=== PATIENT | female | born 1965 | race Caucasian/White ===

== ENCOUNTER 2019-07-30 16:37 | Inpatient (IN) ==
[2019-07-30] MEDS ORDERED: NS 1,000 ML IV ONE ×2 (17:20→19:40)
--- NOTE | 2019-07-30 17:31 | PROVIDER DOCUMENTATION ---
HPI-Fever - General Chief Complaint: SEPSIS ALERT - D Stated Complaint: VOMITING DIARRHEA CANT PEE Time Seen by Provider: 07/30/19 17:20 Source: patient Allergies/Adverse Reactions: Patient Allergies Allergy/AdvReac Type Severity Reaction Status Date / Time ampicillin [Ampicillin] Allergy HIVES Verified 07/30/19 17:32 Sulfa (Sulfonamide Allergy ITCHING Verified 07/30/19 17:32 Antibiotics) [Sulfa(Sulfonamide Antibiotics)] Home Medications: Home Medication List Medication Instructions Recorded Confirmed Last Taken Type LISINOpril [Prinivil] 20 mg PO DAILY 02/28/18 07/30/19 08/18/18 History Doxepin HCl 50 mg PO HS 03/15/18 07/30/19 01/25/19 History Albuterol Sulfate 1 inh INH PRN PRN 03/16/18 07/30/19 08/18/18 History Budesonide 1 inh INH BID PRN PRN 03/16/18 07/30/19 08/18/18 History Buprenorphine/Naloxone S.l. 1 ea SL BID #60 film 03/17/18 07/30/19 01/26/19 Rx [Suboxone 8 mg/2 mg Film] Montelukast [Singulair] 1 tab PO DAILY 01/26/19 07/30/19 01/26/19 History Pantoprazole [Protonix] 1 tab PO DAILY 01/26/19 07/30/19 01/26/19 History Venlafaxine E.r. [Effexor Xr] 1 tab PO DAILY 01/26/19 07/30/19 01/26/19 History - History of Present Illness-Fever Nature of Presenting Problem: 54 yof presents with c/o n/v, diarrhea in ostomy bag and inability to urinate. She denies fever, chills, SOB, CP. Fever Severity/Quality: reports: no fever Onset/Duration: reports: 24 hours ago Timing: reports: still present Severity: reports: moderate Recent Illness?: reports: none Cognitive Baseline: alert, oriented x3 Modifying Factors: improves with: nothing Associated Symptoms: reports: diarrhea, nausea, vomiting Similar Symptoms Previously?: Yes Recently seen or treated by another doctor?: No - Glascow Coma Score Best Eye Response ([place]): (4) open spontaneously Best Verbal Response ([place]): (5) oriented Best Motor Response ([place]): (6) obeys commands Review of Systems - Adult - REVIEW OF SYSTEMS - ADULT Constitutional: reports: no symptoms reported. denies: see HPI, chills, fever, fatique, night sweats, weight gain, weight loss, other Eyes: reports: no symptoms reported. denies: see HPI, discharge, dry eyes, decreased vision, blurred vision, double vision, eye pain, redness, other Ears, Nose, Mouth & Throat: reports: no symptoms reported. denies: see HPI, ear discharge, ear pain, hearing loss, tinnitus, epistaxis, sinus problem, nose pain, loose teeth, mouth/dental pain, mouth swelling, hoarseness, throat pain, throat swelling, other Cardiovascular: reports: no symptoms reported. denies: see HPI, chest pain, edema, heart murmur, irregular heart rate, orthopnea, palpitations, poor circula tion, PND, syncope, other Respiratory: reports: no symptoms reported. denies: see HPI, chronic cough, cough, dyspnea on exertion, excessive sputum production, hemoptysis, pleurisy, shortness of breath, wheezing, other Gastrointestinal: reports: abdominal pain, diarrhea, nausea, poor appetite, vomiting. denies: no symptoms reported, see HPI, hematemesis, constipation, difficulty swallowing, frequent heartburn, rectal bleeding, other Genitourinary: reports: see HPI, other (decreased UOP). denies: no symptoms reported, dysuria, discharge, frequency, flank pain, frequent UTI's, hematuria, hesitency, incontinence, urinary retention, urgency Musculoskeletal: reports: no symptoms reported. denies: see HPI, bone pain, back pain, frequent leg cramps, joint pain, joint swelling, muscle aches, muscle weakness, neck pain, other Integumentary: reports: no symptoms reported. denies: see HPI, hives, hair loss, itching, mole changes, nail changes, rash, skin sores/ulcer, skin thickening, other Neurological: reports: no symptoms reported. denies: see HPI, ataxia, dizziness/vertigo, headache/migraines, loss of balance, numbness, paresthesia, seizure, slurred speech, syncope, tremors, other Psychiatric: reports: no symptoms reported. denies: see HPI, anxiety, anti- depressant use, alcohol/drug dependence, depression, emotional problems, insomnia, panic attacks, suicidal thoughts, other Endocrine: reports: no symptoms reported. denies: see HPI, change in skin pigm ent, excessive sweating, goiter, cold intolerance, heat intolerance, increased hunger, increased thirst, polyuria, other Hematologic/Lymphatic: reports: no symptoms reported. denies: see HPI, blood clots, easy bruising, low blood count, lymphedema, prolonged bleeding, swollen lymph nodes, transfusions, other Allergic/Immunologic: reports: no symptoms reported. denies: see HPI, allergic reactions, allergic rhinitis, asthma, eczema, food allergy, frequent infections, hay fever, hives, positive PPD, urticaria, other Past History - Adult - PAST MEDICAL HISTORY-ADULT Review of Records: reports: Old Records Reviewed, Nursing Assessment Review, Medications Reviewed, Social history reviewed & non-contributory. Major Childhood Illnesses: reports: denies history Cardiovascular: reports: HTN, hyperlipidemia Respiratory: reports: asthma, COPD Gastrointestinal: reports: GERD, other (colon resection colostomy bag) Genitourinary: reports: kidney disease, other (frequent UTIs) Musculoskeletal: reports: arthritis, chronic pain (back) Neurological: reports: Seizures/Epilepsy Psychiatric: reports: anxiety, bipolar, depression, psychiatric problems (adhd), other (ADHD) Other Conditions: reports: cataract/glaucoma, MRSA - PRIOR SURGERIES/PROCEDURES Surgical/Procedure History: reports: appendectomy, cholecystectomy, hysterectomy , , bowel surgery (coloectomy), joint replacement (hip), gastric bypass , other (cataract removal, exploratory lap) - IMMUNIZATION STATUS Childhood Immunizations: See Nurse Assessment Flu Vaccine: See Nurse Assessment - FAMILY HISTORY Family History: reviewed, not pertinent - SOCIAL HISTORY Smoking: other (Vapes) Physical Exam-General - PHYSICAL EXAM-ADULT Initial Vital Signs Reviewed: Yes - CONSTITUTIONAL General Appearance: appears well, alert, no apparent distress - EYES Eyes: PERRL/EOMI, pink conjunctivae - HEAD, EARS, NOSE, MOUTH & THROAT HENMT: normocephalic/atraumatic, moist mucous membranes, normal ENT inspection - NECK Neck: non-tender, full range of motion, supple, normal inspection - RESPIRATORY Respiratory: chest non-tender, lungs clear, normal breath sounds, no pleuratic chest pain, no respiratory distress, no accessory muscle use - CARDIOVASCULAR Cardiovascular: normal peripheral pulses, regular rate, rhythm, no edema, no gallop, no JVD, no murmur - GASTROINTESTINAL (ABDOMEN) Abdominal Exam: normal bowel sounds, soft, tenderness (generalized) - LYMPHATIC Lymphatic: no adenopathy - MUSCULOSKELETAL Back Exam: normal inspection, no CVA tenderness, no vertebral tenderness Extremity: normal range of motion, non-tender, normal gait, normal inspection, no pedal edema, no calf tenderness Peripheral Pulses: radial (R): 2+, radial (L): 2+ - SKIN Integumentary: normal color, warm/dry. negative: normal turgor - NEUROLOGIC Neurologic: psychiatric nurse II-XII nml as tested, grossly normal, no motor/sensory deficits - PSYCHIATRIC Psych/Mental Status: normal mood/affect, oriented x 3 Progress - PLAN OF CARE/RESULTS Progress/Plan/Lab Results: Vital Signs - 8 hr 07/30/19 16:59 07/30/19 17:12 07/30/19 17:15 Temperature 97.4 F L Pulse Rate 102 H 87 89 Respiratory Rate 22 18 16 Blood Pressure 73/53 86/56 86/56 O2 Sat by Pulse Oximetry 95 95 96 07/30/19 18:12 07/30/19 18:30 07/30/19 19:00 Temperature Pulse Rate 77 70 72 Respiratory Rate 12 14 13 Blood Pressure 71/46 75/46 70/43 O2 Sat by Pulse Oximetry 93 L 91 L 94 L 07/30/19 19:30 07/30/19 19:35 07/30/19 19:44 Temperature Pulse Rate 75 72 72 Respiratory Rate 19 15 12 Blood Pressure 68/43 79/45 77/46 O2 Sat by Pulse Oximetry 94 L 93 L 95 07/30/19 19:45 07/30/19 20:16 07/30/19 20:22 Temperature Pulse Rate 72 72 68 Respiratory Rate 14 22 21 Blood Pressure 75/44 67/47 87/60 O2 Sat by Pulse Oximetry 95 95 96 07/30/19 20:31 07/30/19 20:41 07/30/19 20:43 Temperature Pulse Rate 65 73 66 Respiratory Rate 17 15 17 Blood Pressure 73/52 74/48 88/54 O2 Sat by Pulse Oximetry 96 98 97 07/30/19 20:45 07/30/19 20:49 Temperature Pulse Rate 67 69 Respiratory Rate 14 18 Blood Pressure 88/51 80/52 O2 Sat by Pulse Oximetry 94 L 95 Laboratory Results - last 24 hr 07/30/19 07/30/19 07/30/19 17:20 17:20 17:20 WBC 12.55 H RBC 5.08 Hgb 12.7 Hct 41.3 MCV 81.3 MCH 25.0 L MCHC 30.8 L RDW Std Deviation 14.8 H Plt Count 518 H MPV 10.0 Immature Gran % (Auto) 0.4 Neut % (Auto) 65.6 Lymph % (Auto) 28.0 [place] % (Auto) 4.8 Eos % (Auto) 1.0 Baso % (Auto) 0.2 Immature Gran # (Auto) 0.05 H Neut # (Auto) 8.22 H Lymph # (Auto) 3.52 H [place] # (Auto) 0.60 H Eos # (Auto) 0.13 Baso # (Auto) 0.03 PT 13.8 INR 1.05 PTT (Actin FS) 35.0 Sodium 133 L Potassium 4.1 Chloride 94 L Carbon Dioxide 21 L Anion Gap 18 BUN 16 Creatinine 3.4 H Estimated GFR/1.73 m2 14 BUN/Creatinine Ratio 5 Glucose 94 Calculated Osmolality 267 Calcium 8.8 Magnesium 1.9 Total Bilirubin 0.29 AST 16 ALT 8 L Alkaline Phosphatase 110 H Creatine Kinase 221 H Creatine Kinase Index 1.1 CK-MB (CK-2) 2.53 Troponin T Total Protein 7.8 Albumin 4.6 Globulin 3.2 Albumin/Globulin Ratio 1.4 Plasma Lactate Urine Source Urine Color Urine Turbidity Urine pH Ur Specific [place] Urine Protein Ur Glucose (Stick) Ur Ketones (Stick) Urine Blood Urine Nitrite Urine Bilirubin Urobilinogen Dipstick Urine Leukocytes Urine WBC (Auto) Urine RBC (Auto) U Epithel Cells (Auto) Urine Bacteria (Auto) Urine Crystals Small Round Cells Urine Casts Urine Yeast-like Cells 07/30/19 07/30/19 07/30/19 17:20 17:20 20:25 WBC RBC Hgb Hct MCV MCH MCHC RDW Std Deviation Plt Count MPV Immature Gran % (Auto) Neut % (Auto) Lymph % (Auto) [place] % (Auto) Eos % (Auto) Baso % (Auto) Immature Gran # (Auto) Neut # (Auto) Lymph # (Auto) [place] # (Auto) Eos # (Auto) Baso # (Auto) PT INR PTT (Actin FS) Sodium Potassium Chloride Carbon Dioxide Anion Gap BUN Creatinine Estimated GFR/1.73 m2 BUN/Creatinine Ratio Glucose Calculated Osmolality Calcium Magnesium Total Bilirubin AST ALT Alkaline Phosphatase Creatine Kinase Creatine Kinase Index CK-MB (CK-2) Troponin T < 0.010 Total Protein Albumin Globulin Albumin/Globulin Ratio Plasma Lactate 1.9 Urine Source CATH Urine Color YELLOW Urine Turbidity TURBID Urine pH 5.0 Ur Specific [place] 1.026 Urine Protein 100 A Ur Glucose (Stick) NEGATIVE Ur Ketones (Stick) TRACE A Urine Blood TRACE A Urine Nitrite NEGATIVE Urine Bilirubin SMALL A Urobilinogen Dipstick 4 A Urine Leukocytes LARGE A Urine WBC (Auto) TNTC A Urine RBC (Auto) <10 U Epithel Cells (Auto) <10 Urine Bacteria (Auto) NEGATIVE Urine Crystals Not Reportable Small Round Cells Not Reportable Urine Casts NONE SEEN Urine Yeast-like Cells Not Reportable Orders Category Date Time Status Cardiac Monitoring DIRECTED Care 07/30/19 17:19 Active Jarrett Cath Insertion ORDERED Care 07/30/19 20:05 Active IV Insertion ORDERED Care 07/30/19 17:19 Completed Notify MD of + Sepsis Screen NOW Care 07/30/19 17:19 Active Notify Physician As Ordered Care 07/30/19 17:19 Active CHEST-1 VIEW [RAD] Stat Exams 07/30/19 17:[address] ABDOMEN/PELVIS W/O CONTRAST [CT] Stat Exams 07/30/19 18:36 Completed BLOOD CULTURE [BLDCUL] Stat Lab 07/30/19 17:20 Ordered CBC WITH DIFF [HEME] Stat Lab 07/30/19 17:20 Completed CK PROFILE [SP CHEM] Stat Lab 07/30/19 17:20 Completed COMPREHENSIVE METABOLIC PANEL [CHEM] Stat Lab 07/30/19 17:20 Completed LACTATE, PLASMA [CHEM] Lab 07/30/19 17:20 Completed LACTATE, PLASMA [CHEM] Lab 07/30/19 20:58 Received LACTATE, PLASMA [CHEM] Lab 07/30/19 23:30 Uncollected MAGNESIUM [CHEM] Stat Lab 07/30/19 17:20 Completed PROTIME WITH INR [COAG] Stat Lab 07/30/19 17:20 Completed PTT [COAG] Stat Lab 07/30/19 17:20 Completed Stool [C DIFF TOXIN] [STOOL] Stat Lab 07/30/19 20:28 Received TROPONIN T Stat Lab 07/30/19 17:20 Completed URINALYSIS W/POSS RFLX CULT [URINALYSIS] Stat Lab 07/30/19 20:25 Completed URINE MANUAL MICROSCOPIC [URINALYSIS] Stat Lab 07/30/19 20:25 Completed 0.9% Sodium Chloride Inj [Ns] 1,000 ml Med 07/30/19 17:20 Discontinued IV 999 mls/hr 0.9% Sodium Chloride Inj [Ns] 1,000 ml Med 07/30/19 19:40 Discontinued IV 999 mls/hr Dextrose 5%-0.45% NaCl Inj [D5 1/2 Ns] 250 ml Med 07/30/19 21:15 Active Norepinephrine [Levophed] 8 mg IV As Directed mls/hr Levofloxacin 500 mg/D5w [Levaquin 500 mg/D5w] Med 07/30/19 21:07 Active 500 mg in 100 ml IV NOW Oxygen Device Stat Oth 07/30/19 17:19 Active Result Diagrams: 07/30/19 17:20 07/30/19 17:20 - REASSESSMENT Reassessment #1 Time Reassessed: 19:40 (PT IN BED ALERT AND ORIENTED, REINFORCED KEEPING ARM STRAIGHT FOR IVF) Status: unchanged - XRAY 1 XRAY Study: Chest Impression: See EMR Report (CHEST-1 VIEW - 07/30/2019 INDICATION: sepsis protocol COMPARISON: 01/26/2019 FINDINGS: Lung volumes are lower. There is some hazy bibasilar atelectasis. No definite infiltrates otherwise. Heart size is normal. No pneumothorax or pleural effusion. IMPRESSION: Lower lung volumes with bibasilar atelectasis. Electronically signed by Amaury Mendez 07/30/2019 6:23 PM 07/30/191822 Interpreting Physician: Amaury Mendez MD Dictated Date/Time: 07/30/191820 cc: Cherelle Fair; Samira Tracy) - CT/MRI 1 CT Study: Abdomen, Pelvis Impression: See EMR Report (CT ABDOMEN/PELVIS W/O CONTRAST - 07/30/2019 INDICATION: N/V/D, elevated WBC COMPARISON: 09/13/2017 FINDINGS: There is some ill-defined tree-in-bud nodular infiltrate in both lung bases, worse at the left lower lobe. Heart size is normal with no pericardial effusion. There are cholecystectomy changes and gastric bypass changes. There is a ventral hernia. There is been subtotal colectomy with right lower quadrant ileostomy. No bowel obstruction. No free air or free fluid. Uterus is absent. Urinary bladder and r ectum are normal. There is severe atrophy of the pancreas. Otherwise abdominal organs are all normal. There is a right total hip prosthesis in good position. There are moderate degenerative changes of the spine. No acute or suspicious bony lesion. IMPRESSION: 1. Bilateral basilar tree-in-bud nodular infiltrates in the lower lobes. Suggestive of endobronchially spread infection such as chronic atypical mycobacteria. Aspiration is also a consideration. 2. Extensive chronic changes in the abdomen. This exam was performed using automated exposure control, adjustment of mA or kV according to patient size, and/or use of iterative reconstruction technique Electronically signed by Amaury Mendez 07/30/2019 8:17 PM 07/30/192016 Interpreting Physician: Amaury Mendez MD Dictated Date/Time: 07/30/192012 cc: Cherelle Fair; Samira Tracy) Departure - Departure Date of Disposition Decision: 07/30/19 Time of Disposition Decision: 21:08 DIAGNOSIS: Hypotension, Nausea vomiting and diarrhea, MAYO (acute kidney injury), Pneumonia Disposition: ADMITTED INPATIENT 09 Certified Medical Emergency: Emergent Condition: Fair Referrals and Follow-Ups: Samira Tracy CRNP [Primary Care Provider] - - Critical Care Note This patient required my direct & personal management of CC.: No Attestation - Physician/ DANNY Attestation Patient care was provided by Advanced Practice Provider:: Yes Advanced Practice Provider:: Cherelle Fair Advanced Practice Provider documentation review:: The Mid-level provider documentation, treatment plan and medical decision making was reviewed by the physician who agrees with all treatment and medical decision making by the MLP. The physician spent face to face time with patient:: No Advanced Practice Provider documentation review:: Supervising physician onsite and consulted in the evaluation and care of this patient. The physician did not have a face to face encounter with the patient.
[2019-07-30 18:17] LABS: BASO# 0.03 X1000 (0.0-0.2); BASO% 0.2 % (0.0-0.8); EOS# 0.13 X1000 (0.0-0.7); HEMATOCRIT 41.3 % (37.0-47.0); HEMOGLOBIN 12.7 g/dL (12.0-16.0); IMM GRAN# 0.05 X1000 (0.0-0.04); IMM GRAN% 0.4 % (0.0-0.5); LYMPH# 3.52 X1000 (1.2-3.4); MCHC 30.8 g/dL (33-37); MCV 81.3 FL (81-99); MONO% 4.8 % (1.7-9.3); NEUT# 8.22 X1000 (1.4-6.5); NEUT% 65.6 % (42.2-75.2); PLT 518 X1000 (130-400); RBC 5.08 XMIL (4.2-5.4); RDW 14.8 % (11.5-14.5); WBC 12.55 X1000 (4.8-10.8)
[2019-07-30 18:21] LABS: INR 1.05; PROTIME 13.8 Seconds (11.0-16.0)
--- NOTE | 2019-07-30 18:26 | Diag Imaging Result Doc PS360 ---
CHEST-1 VIEW - 07/30/2019 INDICATION: sepsis protocol COMPARISON: 01/26/2019 FINDINGS: Lung volumes are lower. There is some hazy bibasilar atelectasis. No definite infiltrates otherwise. Heart size is normal. No pneumothorax or pleural effusion. IMPRESSION: Lower lung volumes with bibasilar atelectasis. Electronically signed by Amaury Mendez 07/30/2019 6:23 PM
[2019-07-30 18:31] LABS: ALB/GLOB RATIO 1.4; ALBUMIN 4.6 g/dL (3.5-5.0); CALCIUM 8.8 mg/dL (8.8-10.2); CREATININE 3.4 mg/dL (0.5-0.9); MAGNESIUM 1.9 mg/dL (1.5-2.7); POTASSIUM 4.1 mmol/L (3.5-5.1); TOTAL BILIRUBIN 0.29 mg/dL (0.20-1.00); TOTAL PROTEIN 7.8 g/dL (6.3-8.3)
[2019-07-30 18:58] LABS: CK INDEX 1.1 (0.0-2.5); CK-MB 2.53 ng/mL (0.0-5.0)
--- NOTE | 2019-07-30 20:19 | Diag Imaging Result Doc PS360 ---
CT ABDOMEN/PELVIS W/O CONTRAST - 07/30/2019 INDICATION: N/V/D, elevated WBC COMPARISON: 09/13/2017 FINDINGS: There is some ill-defined tree-in-bud nodular infiltrate in both lung bases, worse at the left lower lobe. Heart size is normal with no pericardial effusion. There are cholecystectomy changes and gastric bypass changes. There is a ventral hernia. There is been subtotal colectomy with right lower quadrant ileostomy. No bowel obstruction. No free air or free fluid. Uterus is absent. Urinary bladder and rectum are normal. There is severe atrophy of the pancreas. Otherwise abdominal organs are all normal. There is a right total hip prosthesis in good position. There are moderate degenerative changes of the spine. No acute or suspicious bony lesion. IMPRESSION: 1. Bilateral basilar tree-in-bud nodular infiltrates in the lower lobes. Suggestive of endobronchially spread infection such as chronic atypical mycobacteria. Aspiration is also a consideration. 2. Extensive chronic changes in the abdomen. This exam was performed using automated exposure control, adjustment of mA or kV according to patient size, and/or use of iterative reconstruction technique Electronically signed by Amaury Mendez 07/30/2019 8:17 PM
[2019-07-30 20:36] LABS: URINE SOURCE CATH
[2019-07-30 20:42] LABS: BILIRUBIN URINE SMALL (NEGATIVE); BLOOD URINE TRACE (NEGATIVE); COLOR YELLOW; GLUCOSE URINE NEGATIVE (NEGATIVE); KETONE URINE TRACE mg/dL (NEGATIVE); LEUKOCYTES URINE LARGE (NEGATIVE); NITRITE URINE NEGATIVE (NEGATIVE); PROTEIN URINE 100 mg/dL (NEGATIVE); SP GRAVITY URINE 1.026; TURBIDITY URINE TURBID (CLEAR); UROBILINOGEN URINE 4 mg/dL (NORMAL)
[2019-07-30 20:50] LABS: UR EPITHELIAL CELLS <10 /HPF (<10); URINE BACTERIA NEGATIVE /HPF; URINE RBC <10 /HPF (<10); URINE WBC TNTC /HPF (<10)
[2019-07-30 21:03] LABS: URINE CASTS NONE SEEN
[2019-07-30] MEDS ORDERED: LEVAQUIN 500 MG/D5W 500 MG/100 ML IVPB IV ONE (21:07)
[2019-07-30] MEDS: LEVOPHED 8 MG in D5 1/2 NS 250 ML IV SCH (22:38)
--- NOTE | 2019-07-30 23:20 | HISTORY AND PHYSICAL ---
CHIEF COMPLAINT: Nausea, vomiting, shortness of breath, not feeling well. HISTORY OF PRESENTING ILLNESS: A 54-year-old female with a history of COPD, chronic kidney disease, bipolar disorder and obstructive sleep apnea, who had presented to the emergency department with several days history of having nausea, vomiting and diarrhea. The patient states that she was also having shortness of breath during this time. The patient was evaluated in the emergency department. She was found to be hypotensive. She had elevated white count. She had imaging done that did show possibility of pneumonia. Due to these findings, it was thought that probably she was septic and will need admission for further management. At the time of my examination the patient denied any headache, chest pain, hemoptysis or melena, but complained of having nausea, vomiting and loose watery stools in her colostomy bag. She was also admitting to having shortness of breath. PAST MEDICAL HISTORY: Includes COPD, ischemic colon, chronic kidney disease, bipolar and paranoid schizophrenia, seizure disorder, obstructive sleep apnea. PAST SURGICAL HISTORY: Gastric bypass, colon resection with colostomy, right hip surgery, hernia repair. ALLERGIES: Amoxicillin and sulfa. MEDICATIONS: Current medications include albuterol nebulizers q.4 hours; Suboxone 8 mg/2 mg sublingual b.i.d.; doxepin 50 mg p.o. at bedtime; lisinopril 20 mg p.o. daily; pantoprazole 40 mg p.o. daily; Effexor 150 mg p.o. daily. SOCIAL HISTORY: She was a former smoker. She now vapes. She denies any history of alcohol or illicit drug use. FAMILY HISTORY: Positive for coronary disease in father. REVIEW OF SYSTEMS: Fourteen-point review of systems is as in HPI. Other systems negative. PHYSICAL EXAMINATION: GENERAL: Cooperative, friendly female. She is resting more comfortably now. VITAL SIGNS: Temperature 97.4 degrees, pulse 102, respirations 22, blood pressure 73/53. HEENT: Atraumatic, normocephalic. Extraocular movements intact. PERRLA. NECK: No masses. CHEST: Bibasilar rales. CARDIOVASCULAR: Regular rate and rhythm. ABDOMEN: Soft. Positive bowel sounds. EXTREMITIES: Trace edema. NEUROLOGIC: She is awake, alert and oriented x3. : No bladder distention. SKIN: Warm. LABORATORY DATA: WBC 12.55, hemoglobin 12.7, hematocrit 41.3, platelets 518,000. Sodium 133, potassium 4.1, chloride 97, CO2 is 21, BUN is 16, creatinine is 3.4, glucose is 94. UA shows large leukocytes. DIAGNOSTIC DATA: Abdominal and pelvic CT shows bilateral nodular infiltrates, raising the suspicion for aspiration pneumonia. ASSESSMENT: This is a 54-year-old female with a history of chronic obstructive pulmonary disease, chronic kidney disease, bipolar disorder and obstructive sleep apnea, who presented to the emergency department with several-day history of having nausea, vomiting and also watery stools in her colostomy bag. She was also admitting to having shortness of breath and low-grade temperature. She was evaluated in the emergency department and it was suspected possibly she had pneumonia. She will require admission for further management. 1. Suspected pneumonia. 2. Sepsis, with increase in white blood cells and hypotension. 3. [id number] kidney disease. 4. Chronic obstructive pulmonary disease. 5. Bipolar disorder. PLAN: 1. We will admit the patient to ICU. 2. We will check blood cultures. Start the patient on IV antibiotics. 3. We will continue with IV fluids, and if her blood pressure does not improve we will start the patient on a pressor. 4. We will monitor her renal function closely. 5. We will continue with DuoNeb. 6. We will put the patient on DVT prophylaxis with SCDs. 7. We will continue to follow and reassess, and make further recommendations based on the patient's clinical course. cc: Taran Qureshi MD
[2019-07-31] MEDS ORDERED: ZOFRAN IV PRN (00:30)
[2019-07-31] MEDS ORDERED: DUONEB (A & A) INH PRN (00:30)
[2019-07-31] MEDS ORDERED: NS 1,000 ML IV SCH (00:30)
[2019-07-31] MEDS: SINEQUAN PO SCH ×2 (02:18→20:26)
[2019-07-31 02:59] LABS: URINE SOURCE CATH
[2019-07-31 03:15] LABS: BILIRUBIN URINE NEGATIVE (NEGATIVE); BLOOD URINE SMALL (NEGATIVE); COLOR YELLOW; GLUCOSE URINE NEGATIVE (NEGATIVE); KETONE URINE NEGATIVE (NEGATIVE); LEUKOCYTES URINE LARGE (NEGATIVE); NITRITE URINE NEGATIVE (NEGATIVE); PH URINE 5.5; PROTEIN URINE TRACE mg/dL (NEGATIVE); SP GRAVITY URINE 1.005; TURBIDITY URINE HAZY (CLEAR); UROBILINOGEN URINE NORMAL (NORMAL)
[2019-07-31 03:36] LABS: UR EPITHELIAL CELLS >10 /HPF (<10); URINE BACTERIA NEGATIVE /HPF; URINE CASTS GRANULAR PRESENT; URINE CRYSTALS TRIPLE PHOS PRESENT; URINE RBC <10 /HPF (<10); URINE SMALL ROUND CELLS NONE SEEN; URINE WBC TNTC /HPF (<10); URINE YEAST NONE SEEN
[2019-07-31 03:47] LABS: BASO# 0.02 X1000 (0.0-0.2); BASO% 0.3 % (0.0-0.8); EOS# 0.29 X1000 (0.0-0.7); EOS% 3.6 % (0.0-10.0); HEMATOCRIT 37.1 % (37.0-47.0); HEMOGLOBIN 11.2 g/dL (12.0-16.0); IMM GRAN# 0.03 X1000 (0.0-0.04); IMM GRAN% 0.4 % (0.0-0.5); LYMPH# 2.53 X1000 (1.2-3.4); LYMPH% 31.8 % (20.5-51.1); MCH 24.6 PG (27-31); MCHC 30.2 g/dL (33-37); MCV 81.5 FL (81-99); MONO# 0.45 X1000 (0.11-0.59); MONO% 5.7 % (1.7-9.3); MPV 10.2 FL (7.4-10.4); NEUT# 4.64 X1000 (1.4-6.5); NEUT% 58.2 % (42.2-75.2); PLT 324 X1000 (130-400); RBC 4.55 XMIL (4.2-5.4); RDW 14.4 % (11.5-14.5); WBC 7.96 X1000 (4.8-10.8)
[2019-07-31 04:03] LABS: CALCIUM 8.4 mg/dL (8.8-10.2); CREATININE 2.5 mg/dL (0.5-0.9); POTASSIUM 3.8 mmol/L (3.5-5.1)
[2019-07-31] MEDS ORDERED: LEVOPHED 8 MG in D5 1/2 NS 250 ML IV SCH (04:30)
[2019-07-31] MEDS: LEVOPHED 8 MG in D5 1/2 NS 250 ML IV SCH (05:01)
[2019-07-31] MEDS: SINGULAIR PO SCH (08:24)
[2019-07-31] MEDS: PROTONIX PO SCH (08:24)
[2019-07-31] MEDS: EFFEXOR XR PO SCH (08:24)
[2019-07-31] MEDS: NS 1,000 ML IV SCH ×2 (08:27→18:35)
[2019-07-31] MEDS ORDERED: SUBOXONE 8 MG/2 MG FILM SL SCH (09:00)
[2019-07-31] MEDS: SUBOXONE 8 MG/2 MG SL SCH ×2 (09:07→20:25)
--- NOTE | 2019-07-31 09:11 | PROGRESS NOTE ---
DATE: 07/31/2019 SUBJECTIVE: The patient seems to be feeling better today compared with yesterday. Her last bowel movement was during the night around 12:21 a.m. apparently she has been having some diarrhea and she had also an episode of vomiting and some nausea. She state also that her urine output decreased for 2 or 3 days. She has been placed on IV fluids. She has been placed on antibiotics due to possible pneumonia. As per the patient, she received some antibiotics a few days ago. She went to her doctor and she had some kind of infection, but she was not specific. I will continue with same management for now. I will decrease the rate of the normal saline to 100. She is tolerating p.o. without any problem, the kidney function is getting better. Creatinine decreased from 3.4 to 2.5, and it looks like she is making good urine. But she is still on pressors. OBJECTIVE: Vital Signs: Temperature 97.7 degrees, pulse 60, respiratory rate 16, blood pressure 110/65 oxygen saturation 98 on 2 L of nasal cannula. HEENT: Head normocephalic, no trauma. PERRLA. Neck: Supple. No JVD. No masses. Central trachea. Chest: Clear to auscultation. Some crepitus at the bases with decreased breath sounds at the bases as well. Abdomen: Soft, nontender, nondistended. No hepatosplenomegaly. She does have an ostomy with an ostomy bag without any stools. Extremities: No edema, no clubbing, no cyanosis. Neurological: The patient is completely alert. She is oriented x3. No focal deficits. LABORATORY: WBC 7.9, hemoglobin 11.2, hematocrit 37.1, platelets 324,000. Sodium 136, potassium 3.8, chloride 101, bicarbonate 17, BUN 16, creatinine 2.5, glucose 127, calcium 8.4. Urinalysis with a lot of white blood cells, negative nitrates, negative bacteria. ASSESSMENT AND PLAN: 1. Sepsis, likely due to pneumonia, she has been placed on antibiotics. She is getting IV fluids and also she has been placed on pressors, this is septic shock. We will continue with the same management for now. She seems to be doing a bit better. 2. Acute on chronic kidney disease. Her last creatinine was around 1.4, that result is from January 2019. She came in with a creatinine of 3.4 and now after fluids is 2.5. She seems to be making urine. We will continue with the same management, IV fluids. 3. History of chronic obstructive pulmonary disease, not in exacerbation. 4. History of bipolar disorder, aware. Continue home medications. 5. History of chronic pain, now on Suboxone, I talked to the patient about this treatment and I ask her about decreasing the dose or stopping it and she said that probably she will withdraw, so I will continue with this. 6. History of ischemic colitis status post colon resection with colostomy, aware. She is not having abdominal pain at this moment, but she was having diarrhea. 7. History of obstructive sleep apnea, aware. 8. Apparently she has seizure disorder. We will monitor for now. CRITICAL CARE TIME: 35 minutes. cc: Juan Epps MD
--- NOTE | 2019-07-31 16:45 | EKG Report ---
Test Performed on : 07/31/2019 2:47:28 PM Test Reason : BRADYCARDIA EPISODE Blood Pressure : / mmHG Vent. Rate : 056 BPM Atrial Rate : 056 BPM P-R Int : 162 ms QRS Dur : 082 ms QT Int : 438 ms P-R-T Axes : 049 008 018 degrees QTc Int : 422 ms Sinus bradycardia. Otherwise normal ECG When compared with ECG of 26-JAN-2019 12:59, No significant change was found Confirmed by Augie Cho MD ([id number]) on 07/31/2019 5:33:44 PM
[2019-07-31] MEDS: LEVAQUIN 500 MG/D5W 500 MG/100 ML IVPB IV SCH (20:29)
[2019-07-31] MEDS ORDERED: SINEQUAN PO SCH (21:00)
--- NOTE | 2019-07-31 22:18 | NEPHROLOGY CONSULTATION ---
DATE: 07/31/2019 REASON FOR CONSULTATION: Acute kidney injury. HISTORY OF PRESENT ILLNESS: Ms Gtz is a 54-year-old woman with history of bipolar disorder, COPD, obstructive sleep apnea. She has chronic nausea, vomiting and diarrhea. He states this is an intermittent but ongoing problem and she has been dealing with it a good deal here lately. She has been feeling extremely weak and fatigued and near-syncope. Because these symptoms were progressive, she sought attention in the emergency room. Her initial evaluation found possible pneumonia based on a chest x-ray. Official read finds low lung volumes and bibasilar atelectasis. CT of the abdomen, however described "bilateral tree-in-bud nodular infiltrates." As such, she was admitted to the hospital with a diagnosis of pneumonia and possible sepsis with significant hypotension. Her initial blood pressure was logged at 73/53. She has been treated with intravenous fluid resuscitation as well as IV antibiotics, and her blood pressure has improved as has her urine output and her creatinine. Her creatinine on presentation was 3.4, and is down to 2.5 this morning, and she has had over 2 L of urine. PAST MEDICAL HISTORY: As above. HOME MEDICATIONS: Include lisinopril, doxepin, albuterol, budesonide, Suboxone, montelukast, pantoprazole, venlafaxine. ALLERGIES: Ampicillin and sulfa. SOCIAL HISTORY: Former smoker. FAMILY HISTORY: Otherwise noncontributory. REVIEW OF SYSTEMS: Noncontributory. PHYSICAL EXAMINATION: Vital Signs: Blood pressure 114/79, heart rate 58, respirations 19, afebrile. General: No acute distress. Skin: Warm and dry. Conjunctivae are pink. Oropharynx is moist. Neck: Neck veins are not visible. Trachea is midline. Heart: Regular with no gallops or murmurs. Lungs: Equal. No crackles. No wheezes. Abdomen: Soft, nontender. Bowel sounds present. Extremities: No edema, clubbing or cyanosis. IMPRESSION: Acute kidney injury. She does have pyuria and a negative urine culture. Otherwise, her renal CT demonstrates no evidence of obstruction. Creatinine is improving as her blood pressures has been treated and her APOORVA inhibitor has been withdrawn. Continue IV fluids as ordered and we will observe her response over the next 24 to 48 hours. I expect this will resolve. Likely, she has a hemodynamic form of acute kidney injury, specifically poor glomerular autoregulation in the context of volume contraction. cc: Modesto Bundy MD
[2019-08-01] MEDS: NS 1,000 ML IV SCH ×2 (05:30→14:22)
--- NOTE | 2019-08-01 06:21 | Diag Imaging Result Doc PS360 ---
EXAM: CHEST-PORTABLE HISTORY: dyspnea TECHNIQUE: Single view COMPARISON: 07/30/2019 FINDINGS: The lungs are well expanded. The heart is not enlarged. The vessels are not distended. There are no infiltrates. No effusion identified. IMPRESSION: Negative exam. Electronically signed by William Sharma 08/01/2019 6:19 AM
[2019-08-01 07:51] LABS: BASO# 0.01 X1000 (0.0-0.2); BASO% 0.2 % (0.0-0.8); EOS# 0.11 X1000 (0.0-0.7); EOS% 2.3 % (0.0-10.0); HEMATOCRIT 33.9 % (37.0-47.0); HEMOGLOBIN 10.2 g/dL (12.0-16.0); LYMPH# 1.43 X1000 (1.2-3.4); LYMPH% 30.2 % (20.5-51.1); MCHC 30.1 g/dL (33-37); MCV 83.1 FL (81-99); MONO# 0.15 X1000 (0.11-0.59); MONO% 3.2 % (1.7-9.3); MPV 9.1 FL (7.4-10.4); NEUT# 3.03 X1000 (1.4-6.5); NEUT% 64.1 % (42.2-75.2); PLT 297 X1000 (130-400); RBC 4.08 XMIL (4.2-5.4); RDW 14.1 % (11.5-14.5); WBC 4.73 X1000 (4.8-10.8)
--- NOTE | 2019-08-01 07:58 | PROGRESS NOTE ---
DATE: 08/01/2019 SUBJECTIVE: This patient is feeling better today. She is having bowel movements, but they are not liquid now, they are more loose. It looks like she was placed on vasopressors during the night, but it has been stopped already. She is not complaining of chest pain or shortness of breath or belly pain today. Heart rate also has been dropping and has been mostly in the 50s. I will ask occupational therapy and physical therapy to evaluate this patient. She has a good urine output and actually it is reported 6.1 L with a total negative balance of 1.7 L. OBJECTIVE: Vital Signs: Temperature 96.7 degrees, pulse 71, respiratory rate 12, blood pressure 111/71, oxygen saturation 99 on 2 L of nasal cannula. HEENT: Head normocephalic. No trauma, PERRLA. Neck: Supple. No JVD. No masses. Central trachea. Chest: Clear to auscultation. Some crepitus at the bases and decreased breath sounds at the bases as well. Abdomen: Soft. She has an ostomy with an ostomy bag without any stools right now. Extremities: No edema, no clubbing, no cyanosis. Neurological: The patient is completely alert. She is oriented x3. No focal deficits. She does have some generalized weakness. LABORATORY DATA: Pending lab work today. ASSESSMENT AND PLAN: 1. Sepsis, likely due to pneumonia. Continue with antibiotics. She is getting also IV fluids and she has been on pressors during the night, which have been already stopped. So this patient has been having septic shock. Continue with same management for now. I believe she is doing better. 2. Acute on chronic kidney disease. Her last creatinine was around 1.4 in January 2019. She came in with a creatinine of 3.4 and yesterday was 2.5. Pending lab work today, but she has been having a good urine output, though. 3. History of chronic obstructive pulmonary disease, not in exacerbation. 4. History of bipolar disorder. Aware. Continue home medications. 5. History of chronic pain, now on Suboxone. 6. History of ischemic colitis, status post colon resection and colostomy, aware. She is not complaining of abdominal pain and her bowel movements are more loose than watery. 7. History of obstructive sleep apnea. Aware. 8. History of seizure disorder. As per the patient, that happened just one time and she is not on any medication. CRITICAL CARE TIME: 30 minutes. cc: Juan Epps MD
[2019-08-01 08:18] LABS: AGAP 12; ALB/GLOB RATIO 1.5; ALBUMIN 3.5 g/dL (3.5-5.0); ALKALINE PHOSPHATASE 89 U/L (32-104); BUN 11 mg/dL (8-22); CALCIUM 8.3 mg/dL (8.8-10.2); CHLORIDE 105 mmol/L (98-107); COSMO 274; CREATININE 0.9 mg/dL (0.5-0.9); ESTIMATED GFR > 60; GLUCOSE 87 mg/dL (70-104); GOT 18 U/L (10-30); GPT 8 U/L (10-36); POTASSIUM 4.5 mmol/L (3.5-5.1); SODIUM 138 mmol/L (136-145); TCO2 21 mmol/L (25-35); TOTAL BILIRUBIN < 0.15 mg/dL (0.20-1.00); TOTAL PROTEIN 5.9 g/dL (6.3-8.3)
[2019-08-01] MEDS: PROTONIX PO SCH (09:12)
[2019-08-01] MEDS: EFFEXOR XR PO SCH (09:12)
[2019-08-01] MEDS: SINGULAIR PO SCH (09:12)
[2019-08-01] MEDS: SUBOXONE 8 MG/2 MG SL SCH ×2 (09:12→17:29)
[2019-08-01] MEDS ORDERED: TYLENOL PO PRN (11:25)
--- NOTE | 2019-08-01 12:15 | NEPHROLOGY PROGRESS NOTE ---
DATE: 08/01/2019 SUBJECTIVE: She is off Levophed, eating her breakfast. No complaints. OBJECTIVE: Vital signs: Blood pressure 101/60, heart rate 82, respirations 17, afebrile. General: No acute distress. Neck: Neck veins are not distended. Heart: Regular with no gallops. Lungs: Equal, no crackles. Extremities: No edema. IMPRESSION: Acute kidney injury. Resolved. Electrolytes/acid-base in target. Euvolemic. We will sign off today. cc: Modesto Bundy MD
[2019-08-01] MEDS: SINEQUAN PO SCH (20:23)
[2019-08-01] MEDS: LEVAQUIN 500 MG/D5W 500 MG/100 ML IVPB IV SCH (20:23)
[2019-08-02] MEDS: NS 1,000 ML IV SCH (01:08)
[2019-08-02] MEDS: SUBOXONE 8 MG/2 MG SL SCH ×2 (05:26→14:18)
[2019-08-02 06:39] LABS: BASO# 0.01 X1000 (0.0-0.2); BASO% 0.1 % (0.0-0.8); EOS% 1.3 % (0.0-10.0); HEMATOCRIT 29.6 % (37.0-47.0); HEMOGLOBIN 9.1 g/dL (12.0-16.0); LYMPH# 0.62 X1000 (1.2-3.4); LYMPH% 7.9 % (20.5-51.1); MCH 26.5 PG (27-31); MCHC 30.7 g/dL (33-37); MCV 86.3 FL (81-99); MONO# 0.95 X1000 (0.11-0.59); MONO% 12.1 % (1.7-9.3); MPV 9.1 FL (7.4-10.4); NEUT# 6.17 X1000 (1.4-6.5); NEUT% 78.6 % (42.2-75.2); PLT 274 X1000 (130-400); RBC 3.43 XMIL (4.2-5.4); RDW 15.3 % (11.5-14.5); WBC 7.85 X1000 (4.8-10.8)
[2019-08-02 07:05] LABS: AGAP 15; ALB/GLOB RATIO 1.5; ALBUMIN 3.7 g/dL (3.5-5.0); ALKALINE PHOSPHATASE 123 U/L (32-104); BUN 13 mg/dL (8-22); CALCIUM 8.2 mg/dL (8.8-10.2); CHLORIDE 92 mmol/L (98-107); COSMO 273; CREATININE 0.6 mg/dL (0.5-0.9); ESTIMATED GFR > 60; GLUCOSE 152 mg/dL (70-104); GOT 15 U/L (10-30); GPT 6 U/L (10-36); MAGNESIUM 1.2 mg/dL (1.5-2.7); PHOSPHORUS 3.6 mg/dL (2.7-4.5); POTASSIUM 3.4 mmol/L (3.5-5.1); SODIUM 135 mmol/L (136-145); TCO2 28 mmol/L (25-35); TOTAL BILIRUBIN 0.75 mg/dL (0.20-1.00); TOTAL PROTEIN 6.1 g/dL (6.3-8.3)
[2019-08-02] MEDS ORDERED: MAGNESIUM SULFATE 2 GM/S.W.I. 2 GM/50 ML IVPB IV ONE (07:18)
[2019-08-02] MEDS ORDERED: KLOR-CON PO ONE (07:18)
--- NOTE | 2019-08-02 07:48 | PROGRESS NOTE ---
DATE: 08/02/2019 SUBJECTIVE: Patient is feeling much better today. She is having bowel movement. She is tolerating p.o. Kidney function recovered. She is having good urine output. I will stop the IV fluids, and I will remove the Jarrett catheter and send her to the medical floor. OBJECTIVE: Vital Signs: Temperature 97.8 degrees, pulse 72, respiratory rate 22, blood pressure 95/69, oxygen saturation 96% on 2 L of nasal cannula. HEENT: Head normocephalic, no trauma. PERRLA. Neck: Supple. No JVD. No masses. Central trachea. Chest: Clear to auscultation. Some crepitus at the bases. Decreased breath sounds at the bases. Extremities: She has no edema, no clubbing, no cyanosis. Neurological examination: The patient is completely alert. She is oriented x3. No focal deficits, but she does have generalized weakness. LABORATORY: WBC 7.8, hemoglobin 9.1, hematocrit 29.6, platelets 274. Sodium 135, potassium 3.4, chloride 92, bicarbonate 28. BUN 13, creatinine 0.6, glucose 152, calcium 8.2, magnesium 1.2, AST 15, ALT 6, alkaline phosphatase 123. ASSESSMENT AND PLAN: 1. Sepsis due to pneumonia. She seems to be getting better. She is no longer on pressors. I will stop the intravenous fluids, continue with antibiotics. 2. Septic shock. She used to be on pressors, but they were stopped already. 3. Acute on chronic kidney disease, resolved. 4. History of chronic obstructive pulmonary disease, not in exacerbation. 5. History of bipolar disorder, aware. She seems to be stable. Continue with home medications. 6. History of chronic pain, now on Suboxone. 7. History of ischemic colitis, status post colon resection and colostomy, aware. She is not complaining of abdominal pain. She is not having diarrhea now. 8. Diarrhea, resolved. 9. History of obstructive sleep apnea, aware. 10. History of seizure disorder. As per the patient, that happened just one time and she is not on any medication. The patient seems to be more stable. I will stop the IV fluids. Kidney function recovered. No more diarrhea. She will be transferred to the medical floor and work with physical therapy. Hopefully in the next 24 to 48 hours, I will be able to discharge this patient, either home or ask for rehab. cc: Juan Epps MD
[2019-08-02] MEDS: PROTONIX PO SCH (08:01)
[2019-08-02] MEDS: EFFEXOR XR PO SCH (08:01)
[2019-08-02] MEDS: SINGULAIR PO SCH (08:01)
[2019-08-02] MEDS: SINEQUAN PO SCH (21:29)
[2019-08-02] MEDS: LEVAQUIN 500 MG/D5W 500 MG/100 ML IVPB IV SCH (21:29)
[2019-08-03] MEDS: SUBOXONE 8 MG/2 MG SL SCH (05:37)
[2019-08-03 07:58] LABS: CALCIUM 9.1 mg/dL (8.8-10.2); MAGNESIUM 1.5 mg/dL (1.5-2.7); PHOSPHORUS 3.3 mg/dL (2.7-4.5); POTASSIUM 4.6 mmol/L (3.5-5.1)
[2019-08-03 08:42] VITALS: BP 113/79
[2019-08-03] MEDS: PROTONIX PO SCH (08:43)
[2019-08-03] MEDS: SINGULAIR PO SCH (08:43)
[2019-08-03] MEDS: EFFEXOR XR PO SCH (08:43)
--- NOTE | 2019-08-03 14:39 | DISCHARGE SUMMARY ---
ADMISSION DATE: 07/31/2019 DISCHARGE DATE: 08/03/2019 DISCHARGE DIAGNOSES: 1. Sepsis due to pneumonia. 2. Septic shock. 3. Acute on chronic kidney disease, resolved. 4. History of chronic obstructive pulmonary disease, not in exacerbation. 5. History of bipolar disorder. 6. History of chronic pain, on Suboxone. 7. History of ischemic colitis status post colon resection and colostomy. 8. Diarrhea, resolved. 9. History of obstructive sleep apnea, aware. 10. History of seizure disorder x1. Not on medications. PROCEDURES PERFORMED: 1. Chest x-ray dated 07/30/2019. Impression: Lower lung volumes with bibasilar atelectasis. 2. Abdomen and pelvis CT scan dated 07/30/2019. Impression: Bilateral basilar tree-in-bud nodular infiltrates in the lower lobes that could be related to aspiration pneumonia and/or atypical mycobacteria, extensive chronic changes in the abdomen. 3. Chest x-ray dated 08/01/2019. Impression: Negative exam. CONSULTS: Nephrology Department. HOSPITAL COURSE: A 54-year-old female with a past medical history of COPD, CKD, bipolar disorder, and obstructive sleep apnea, presented to the emergency department with several days of nausea, vomiting, and diarrhea, also shortness of breath. She was evaluated in the emergency department. The patient was found in the emergency department to be hypotensive, elevated white blood cell count, pneumonia. She was transferred to the ICU. She was placed on pressors. She received some fluids. She was dehydrated due to the diarrhea as well with kidney injury. Nephrology Department evaluated this patient, and they followed this patient closely. The kidney function recovered. The patient oxygenation also recovered and the breathing as well. She was feeling better on a daily basis. She was transferred to the floor. We started treatment with physical therapy, and she was able to ambulate by herself. Today this patient is basically asymptomatic. She is no longer having diarrhea. Her bowel movements are normal for her. She is not complaining of shortness of breath or chest pain. She will be discharged today. We will continue with p.o. antibiotics at home, and basically she will continue with her home medications. OBJECTIVE: Vital Signs: Temperature 98 degrees, pulse 72, respiratory rate 20, blood pressure 113/79, oxygen saturation 99 on room air. HEENT: Head normocephalic. No trauma. PERRLA. Neck: Supple. No JVD. No masses. Central trachea. Chest: Clear to auscultation. Some mild crepitus at the bases. Extremities: She has no edema, no clubbing, no cyanosis. Abdomen: Soft, nontender, nondistended. No hepatosplenomegaly. She does have a colostomy bag which is working fine with some stools. Neurological: The patient is completely alert. She is oriented x3. No focal deficits but some generalized weakness. LABORATORY: Sodium 140, potassium 4.6, chloride 102, bicarbonate 22, BUN 13, creatinine 1, glucose 116, calcium 9.1, magnesium 1.5. DISCHARGE MEDICATIONS: 1. Albuterol sulfate 1 inhalation as needed for shortness of breath. 2. Budesonide 1 inhalation twice a day as needed. 3. Suboxone 8 mg/2 mg pill sublingual b.i.d. 4. Doxepin 50 mg p.o. at bedtime. 5. Levofloxacin 750 mg p.o. daily. 6. Montelukast 1 tablet p.o. daily. 7. Pantoprazole 40 mg p.o. daily. 8. Effexor ER 150 mg p.o. daily. Time discharging this patient, 30 minutes. cc: Juan Epps MD
== END 2019-08-03 11:52 | disposition home or self-care (01) | DRG 871 ==
LOC: ED 16:37 → ICU 07-31 01:13 → SUATTDRO 07-31 01:13 → 3N 08-02 17:44
PROVIDERS: ATTEND Internal Medicine